=== PATIENT | female | born 1990 | race Two or more races ===

== ENCOUNTER 2016-12-20 10:36 | Observation (INO) | payer MEDICAID ==
[~2016-12-20] VITALS: Ht 144.8 cm; Wt 63.5 kg
[~2016-12-20 10:36] MED LIST: IBUP800T24 PO; INSUPOW SC; PRENATAL PLUS PO
[2016-12-20] MEDS ORDERED: SODIUM CHLORIDE 0.9% 3,000 ML IV ONE (11:00)
[2016-12-20 11:25] LABS: Urine Bilirubin Negative (Negative); Urine Color Yellow (Yellow); Urine Nitrite Negative (Negative); Urine RBC 607 /hpf (0 - 4); Urine Squamous Epithelial Cell FEW /hpf (<5); Urine Urobilinogen Normal (Negative)
[2016-12-20 11:34] LABS: Urine Blood 2+ /uL (Negative); Urine Glucose 4+ mg/dL (Normal); Urine Ketone 1+ (Negative)
[2016-12-20 11:34] LABS: Basophils # (auto) 0.1 uL; Basophils % (auto) 0.7 % (0.0-2.0); Eosinophils # (auto) 0.1 uL; Eosinophils % (auto) 0.8 % (0.0-7.0); Hematocrit 42.5 % (36.0-46.0); Hemoglobin 14.2 g/dL (12.2-16.2); Lymphocytes # (auto) 1.7 uL; Lymphocytes % (auto) 11.2 % (10.0-50.0); Mean Corpuscular Hemoglobin 28.6 pg (28.0-32.0); Mean Corpuscular Hgb Conc. 33.5 g/dL (32.0-36.0); Mean Corpuscular Volume 85.4 fL (80.0-100.0); Mean Platelet Volume 7.9 fL (7.4-10.4); Monocytes # (auto) 0.9 uL; Monocytes % (auto) 5.8 % (0.0-12.0); Neutrophils % (auto) 81.5 % (37.0-80.0); Platelet Count (auto) 458 10^3/uL (140-450); White Blood Cell 14.7 10^3/uL (4.4-10.8)
[2016-12-20] MEDS ORDERED: ACETAMINOPHEN 650 mg PER 20 mL UD PO ONE (11:45)
[2016-12-20] MEDS ORDERED: SODIUM CHLORIDE 0.9% 1,000 ML IV ONE (11:55)
[2016-12-20 11:56] LABS: BUN/Creatinine Ratio 5.7; Bilirubin, Total 0.1 mg/dL (0.2-1.0); Calcium 8.5 mg/dL (8.5-10.1); Potassium 3.6 mmol/L (3.5-5.1); Total Protein 7.4 g/dL (6.4-8.2)
[2016-12-20] MEDS ORDERED: cefTRIAXone 1GM/50ML D5W 50 ML IV ONE (12:00)
[2016-12-20] MEDS ORDERED: InsuLIN REG 1unit/0.01ml Soln (100units/ml) IV ONE (13:45)
[2016-12-20 14:46] VITALS: BP 107/73
== END 2016-12-20 15:00 | disposition home or self-care (01) | DRG 420 ==
LOC: ER 10:44 → OVERFLOW 11:57 → ER 14:56
PROVIDERS: ADMIT Emergency Medicine; ATTEND Emergency Medicine
DX: E11.65 Type 2 diabetes mellitus with hyperglycemia (principal); N39.0 Urinary tract infection, site not specified; J31.0 Chronic rhinitis; L02.811 Cutaneous abscess of head [any part, except face]
CPT/HCPCS: 36415; 71020; 80053; 81001; 81025; 82962; 83735; 85025; 96361; 96365; G0378; G0434; J0696

== ENCOUNTER 2018-04-30 00:28 | Emergency (ER) | payer SELFPAY ==
[~2018-04-30] VITALS: Ht 144.8 cm; Wt 63.5 kg
[2018-04-30] MEDS ORDERED: SODIUM CHLORIDE 0.9% 1,000 ML IV ONE ×2 (06:56)
[2018-04-30] MEDS ORDERED: InsuLIN REG 1unit/0.01ml Soln (100units/ml) IV ONE (07:00)
[2018-04-30 07:13] VITALS: BP 124/50
[2018-04-30 07:14] LABS: Basophils # (auto) 0.1 uL; Basophils % (auto) 0.7 % (0.0-2.0); Eosinophils # (auto) 0.1 uL; Eosinophils % (auto) 1.5 % (0.0-7.0); Hematocrit 40.1 % (36.0-46.0); Hemoglobin 13.8 g/dL (12.2-16.2); Lymphocytes # (auto) 2.4 uL; Lymphocytes % (auto) 26.7 % (10.0-50.0); Mean Corpuscular Hemoglobin 28.9 pg (28.0-32.0); Mean Corpuscular Hgb Conc. 34.4 g/dL (32.0-36.0); Mean Corpuscular Volume 84.1 fL (80.0-100.0); Monocytes # (auto) 0.6 uL; Neutrophils # (auto) 5.8 uL; Neutrophils % (auto) 64.1 % (37.0-80.0); Platelet Count (auto) 382 10^3/uL (140-450); Red Blood Cells 4.77 10^6/uL (4.0-5.20); Red Cell Distribution Width 12.8 % (11.8-14.3)
[2018-04-30] MEDS ORDERED: KETOROLAC TROMETH 60MG/2ML VIAL IM ONE (07:15)
[2018-04-30 07:30] LABS: BUN/Creatinine Ratio 19.6; Potassium 3.9 mmol/L (3.5-5.1)
== END 2018-04-30 09:09 | disposition home or self-care (01) ==
LOC: ER 00:33
DX: K02.9 Dental caries, unspecified (principal); E11.65 Type 2 diabetes mellitus with hyperglycemia; F12.10 Cannabis abuse, uncomplicated; F15.10 Other stimulant abuse, uncomplicated; Z88.0 Allergy status to penicillin; Z88.6 Allergy status to analgesic agent
CPT/HCPCS: 36415; 80048; 82962; 85025; 96372; 96374; 99284; J1815; J1885

== ENCOUNTER 2019-02-14 06:45 | Inpatient (IN) | payer MEDICAID | END 2019-02-18 15:30 | disposition home or self-care (01) | LOC: ER 06:45 → OVERFLOW 14:50 → EAST 16:09 | DX: A41.9 Sepsis, unspecified organism (principal); N17.0 Acute kidney failure with tubular necrosis; E44.0 Moderate protein-calorie malnutrition; L89.159 Pressure ulcer of sacral region, unspecified stage; E11.65 Type 2 diabetes mellitus with hyperglycemia; E88.09 Other disorders of plasma-protein metabolism, not elsewhere classified; L03.319 Cellulitis of trunk, unspecified; E86.0 Dehydration; F19.10 Other psychoactive substance abuse, uncomplicated; Z72.89 Other problems related to lifestyle; N17.9 Acute kidney failure, unspecified; F12.10 Cannabis abuse, uncomplicated; G62.9 Polyneuropathy, unspecified; I25.10 Atherosclerotic heart disease of native coronary artery without angina pectoris; M19.90 Unspecified osteoarthritis, unspecified site; L05.91 Pilonidal cyst without abscess; Z79.4 Long term (current) use of insulin; Z91.19 Patient's noncompliance with other medical treatment and regimen; Z59.0 Homelessness ==

== ENCOUNTER 2021-03-15 21:47 | Inpatient (IN) | payer MEDICAID ==
[~2021-03-15] VITALS: Ht 154.9 cm; Wt 68.7 kg
[~2021-03-15 21:47] MED LIST changes: -IBUP800T24 PO
[2021-03-15] MEDS ORDERED: KETOROLAC TROMETH 30 MG/ML 1ML VIAL IV ONE (22:30)
[2021-03-15] MEDS ORDERED: fentaNYL CITRATE 100 MCG/2 ML VL IV ONE (22:30)
[2021-03-15 22:59] LABS: Eosinophils # (auto) 0 10 ^3/uL (0-0.8); Eosinophils % (auto) 0.1 % (0.0-7.0); Lymphocytes # (auto) 1.8 10 ^3/uL (0.4-5.4); Monocytes # (auto) 1.7 10 ^3/uL (0-1.3); Neutrophils # (auto) 19.1 10 ^3/uL (1.6-8.6)
[2021-03-15 23:04] LABS: Albumin 2.1 g/dL (3.4-5.0); BUN/Creatinine Ratio 9.7; Calcium 8.1 mg/dL (8.5-10.1); Potassium 3.6 mmol/L (3.5-5.1)
[2021-03-15 23:07] LABS: Bilirubin, Total 0.2 mg/dL (0.2-1.0); Total Protein 7.9 g/dL (6.4-8.2)
[2021-03-15 23:16] LABS: Basophils # (auto) 0.1 10 ^3/uL (0-0.2); Basophils % (auto) 0.6 % (0.0-2.0); Mean Corpuscular Hemoglobin 30.5 pg (28.0-32.0); Mean Corpuscular Hgb Conc. 36.3 g/dL (32.0-36.0); Monocytes % (auto) 7.4 % (0.0-12.0); Neutrophils % (auto) 83.9 % (37.0-80.0); Red Blood Cells 3.93 10^6/uL (4.0-5.20); Red Cell Distribution Width 13.3 % (11.8-14.3); White Blood Cell 22.8 10^3/uL (4.4-10.8)
[2021-03-15 23:34] LABS: Urine Bacteria NONE SEEN /hpf (None Seen); Urine Blood 1+ /uL (Negative); Urine WBC 1 /hpf (0 - 5)
[2021-03-16] MEDS ORDERED: VANCOMYCIN 1GM/250ML 250 ML IV ONE
[2021-03-16] MEDS ORDERED: PIPERACILLIN-TAZOB 3.375GM 100 ML IV ONE ×2
[2021-03-16] MEDS ORDERED: IOHEXOL 300 MG/ML 100ML BOTTLE IJ ONE (00:29)
[2021-03-16] MEDS ORDERED: InsuLIN REG 1unit/0.01ml Soln (100units/ml) IV ONE (00:30)
[2021-03-16 01:37] LABS: Alcohol, Urine < 3.0 mg/dL (0-10); Amphetamine Screen, Urine POSITIVE (NEGATIVE); Barbiturate Scree,Urine NEGATIVE (NEGATIVE); Benzodiazephine Screen, Urine NEGATIVE (NEGATIVE); Cannabinoid Screen, Urine POSITIVE (NEGATIVE); Cocaine Screen, Urine NEGATIVE (NEGATIVE); Phencyclidine Screen, Urine NEGATIVE (NEGATIVE)
[2021-03-16 01:44] LABS: Opiate Scree,Urine NEGATIVE (NEGATIVE)
[2021-03-16] MEDS ORDERED: fentaNYL CITRATE 100 MCG/2 ML VL IV ONE (02:45)
[2021-03-16] MEDS ORDERED: diphenhdrAMINE HCL 50 MG/1 ML VL IV ONE (02:45)
[2021-03-16] MEDS ORDERED: ALBUMIN 25% 50 ML IV ONE (06:30)
[2021-03-16] MEDS ORDERED: DEXTROSE (50%) 50ML SYRG IV PRN (06:30)
[2021-03-16] MEDS ORDERED: TEMAZEPAM 15 MG CAP PO PRN (06:30)
[2021-03-16] MEDS ORDERED: NITROGLYCERIN 0.4 MG SL TAB SL PRN (06:30)
[2021-03-16] MEDS ORDERED: VANCOMYCIN PER PHARMACY 0 MG IV SCH (06:30)
[2021-03-16] MEDS ORDERED: MORPHINE SULFATE INJECTION 2 MG/ML SYRG IV PRN (06:30)
[2021-03-16] MEDS ORDERED: DOCUSATE SOD 100 MG CAP PO PRN (06:30)
[2021-03-16] MEDS ORDERED: ONDANSETRON HCL 4 MG/2 ML VIAL IV PRN ×2 (06:30→09:45)
[2021-03-16 07:29] LABS: Basophils # (auto) 0.1 10 ^3/uL (0-0.2); Eosinophils # (auto) 0 10 ^3/uL (0-0.8); Eosinophils % (auto) 0.1 % (0.0-7.0); Hematocrit 32.7 % (36.0-46.0); Hemoglobin 11.3 g/dL (12.2-16.2); Mean Corpuscular Hemoglobin 28.5 pg (28.0-32.0); Monocytes # (auto) 2.7 10 ^3/uL (0-1.3)
[2021-03-16 07:30] LABS: Basophils % (auto) 0.4 % (0.0-2.0); Lymphocytes # (auto) 2.5 10 ^3/uL (0.4-5.4); Lymphocytes % (auto) 11.3 % (10.0-50.0); Mean Corpuscular Hgb Conc. 34.6 g/dL (32.0-36.0); Mean Corpuscular Volume 82.6 fL (80.0-100.0); Monocytes % (auto) 12.3 % (0.0-12.0); Neutrophils # (auto) 16.6 10 ^3/uL (1.6-8.6); Neutrophils % (auto) 75.9 % (37.0-80.0); Red Blood Cells 3.96 10^6/uL (4.0-5.20); Red Cell Distribution Width 13.9 % (11.8-14.3); White Blood Cell 21.9 10^3/uL (4.4-10.8)
[2021-03-16] MEDS: SODIUM CHLORIDE 0.9% 1,000 ML IV SCH ×2 (07:50→23:34)
[2021-03-16] MEDS: INSULIN LANTUS (GLARGINE) 1 /0.01ml (100units/ml) SC SCH ×2 (07:50→23:27)
[2021-03-16 07:56] LABS: Alanine Aminotransferase 15 U/L (13-56); Albumin 1.8 g/dL (3.4-5.0); Anion Gap 9 (5-15); Aspartate Aminotransferase 31 U/L (15-37); BUN/Creatinine Ratio 14.3; Blood Urea Nitrogen 5 mg/dL (7-18); Calcium 7.9 mg/dL (8.5-10.1); Carbon Dioxide 22 mmol/L (21-32); Chloride 106 mmol/L (98-107); GFR African American 278 mL/min; GFR Non-African American 229 mL/min; Glucose 78 mg/dL (74-106); Potassium 3.2 mmol/L (3.5-5.1); Sodium 137 mmol/L (136-145)
[2021-03-16 07:59] LABS: Alkaline Phosphatase 137 U/L (45-117); Bilirubin, Total 0.2 mg/dL (0.2-1.0); Total Protein 7.2 g/dL (6.4-8.2)
[2021-03-16] MEDS ORDERED: levoFLOXacin 500MG 100 ML IV ONE (09:45)
[2021-03-16] MEDS: MULTIPLE VITAMIN TAB PO SCH (10:38)
[2021-03-16] MEDS: ZINC SULFATE 220mg CAP or TAB PO SCH (10:38)
[2021-03-16] MEDS: ASCORBIC ACID 500 MG TAB PO SCH ×2 (10:38→21:24)
[2021-03-16] MEDS: ASPirin 81 mg TAB PO SCH (10:38)
[2021-03-16] MEDS: FAMOTIDINE 20 MG TAB PO SCH ×2 (10:39→21:24)
[2021-03-16] MEDS: HEPARIN SODIUM (PORCINE) 5000 UNITS/ML 1ML VIAL SC SCH ×2 (10:40→21:23)
[2021-03-16] MEDS: VANCOMYCIN 1GM/250ML 250 ML IV SCH ×2 (10:42→21:27)
[2021-03-16 11:12] VITALS: BP 130/87
[2021-03-16] MEDS: InsuLIN REG 1unit/0.01ml Soln (100units/ml) SC SCH ×3 (12:09→23:28)
[2021-03-16] MEDS: ACCU-CHEK COMFORT CURVE STRIP VI SCH ×3 (12:09→23:34)
[2021-03-16] MEDS: MORPHINE SULFATE INJECTION 2 MG/ML SYRG IV PRN ×2 (12:11→21:31)
[2021-03-16 13:00] VITALS: BP 116/73
[2021-03-16] MEDS ORDERED: LIDOCAINE 2%HCL (LOCAL ANESTH.) INJ 20ML MDV ONE (16:46)
[2021-03-16] MEDS ORDERED: HEPARIN IN NS 1000Units/500mL 1,500 ML ONE (16:46)
[2021-03-16] MEDS ORDERED: IOHEXOL 350 MG/ML 100ML IJ ONE (16:46)
[2021-03-16] MEDS ORDERED: ANGIOMAX 250 MG VIAL IV ONE (16:54)
[2021-03-16] MEDS ORDERED: SODIUM CHL 0.9% 50 ML ONE (16:55)
[2021-03-16] MEDS ORDERED: fentaNYL CITRATE 100 MCG/2 ML VL ONE (16:55)
[2021-03-16] MEDS ORDERED: MIDAZOLAM HCL 2MG/2ML 2ml VIAL (1mg/ml) ONE (16:55)
[2021-03-16] MEDS ORDERED: diphenhdrAMINE HCL 50 MG/1 ML VL ONE (17:24)
[2021-03-16 17:49] LABS: INR 1.09 (0.9-1.15)
[2021-03-16] MEDS ORDERED: IODIXANOL 320MG/ML 100ML BTL IV ONE (19:37)
[2021-03-16] MEDS: ACETAMINOPHEN 325 MG TAB PO PRN (20:52)
[2021-03-16] MEDS: ATORVASTATIN 20 MG TAB PO SCH (21:25)
[2021-03-16 22:00] VITALS: BP 123/71
[2021-03-17] MEDS: VANCOMYCIN 1GM/250ML 250 ML IV SCH (03:35)
[2021-03-17] MEDS: MORPHINE SULFATE INJECTION 2 MG/ML SYRG IV PRN ×4 (04:09→20:50)
[2021-03-17 04:58] VITALS: BP 115/59
[2021-03-17 05:21] LABS: Basophils # (auto) 0 10 ^3/uL (0-0.2); Basophils % (auto) 0.2 % (0.0-2.0); Eosinophils # (auto) 0 10 ^3/uL (0-0.8); Hemoglobin 10.9 g/dL (12.2-16.2); Monocytes # (auto) 1.5 10 ^3/uL (0-1.3); Neutrophils # (auto) 14.5 10 ^3/uL (1.6-8.6)
[2021-03-17 05:23] LABS: Lymphocytes % (auto) 11.1 % (10.0-50.0); Mean Corpuscular Hemoglobin 28.9 pg (28.0-32.0); Mean Corpuscular Hgb Conc. 35.1 g/dL (32.0-36.0); Mean Corpuscular Volume 82.3 fL (80.0-100.0); Monocytes % (auto) 8.5 % (0.0-12.0); Neutrophils % (auto) 80.2 % (37.0-80.0); Red Blood Cells 3.77 10^6/uL (4.0-5.20); Red Cell Distribution Width 13.6 % (11.8-14.3); White Blood Cell 18.1 10^3/uL (4.4-10.8)
[2021-03-17 05:37] LABS: BUN/Creatinine Ratio 11.9; Bilirubin, Total 0.3 mg/dL (0.2-1.0); Total Protein 7.2 g/dL (6.4-8.2)
[2021-03-17] MEDS: InsuLIN REG 1unit/0.01ml Soln (100units/ml) SC SCH ×4 (06:00→23:28)
[2021-03-17] MEDS: ACCU-CHEK COMFORT CURVE STRIP VI SCH ×4 (06:19→23:29)
[2021-03-17] MEDS: INSULIN LANTUS (GLARGINE) 1 /0.01ml (100units/ml) SC SCH ×2 (06:48→22:48)
[2021-03-17 09:00] VITALS: BP 136/76
[2021-03-17] MEDS: ASPirin 81 mg TAB PO SCH (10:16)
[2021-03-17] MEDS: ZINC SULFATE 220mg CAP or TAB PO SCH (10:16)
[2021-03-17] MEDS: MULTIPLE VITAMIN TAB PO SCH (10:16)
[2021-03-17] MEDS: levoFLOXacin 500MG 100 ML IV SCH (10:16)
[2021-03-17] MEDS: FAMOTIDINE 20 MG TAB PO SCH ×2 (10:16→21:03)
[2021-03-17] MEDS: ASCORBIC ACID 500 MG TAB PO SCH ×2 (10:16→21:03)
[2021-03-17] MEDS: HEPARIN SODIUM (PORCINE) 5000 UNITS/ML 1ML VIAL SC SCH ×2 (10:21→21:04)
[2021-03-17 13:00] VITALS: BP 114/86
[2021-03-17] MEDS ORDERED: POTASSIUM CHL 20 Meq TABLET PO ONE (13:30)
[2021-03-17] MEDS: POTASSIUM CHL 20MEQ/100ML 100 ML IV SCH ×2 (14:59→17:28)
[2021-03-17] MEDS: SODIUM CHLORIDE 0.9% 1,000 ML IV SCH (16:12)
[2021-03-17 16:50] VITALS: BP 107/70
[2021-03-17] MEDS: ATORVASTATIN 20 MG TAB PO SCH (21:03)
[2021-03-17 22:00] VITALS: BP 138/79
[2021-03-17] MEDS: ACETAMINOPHEN 325 MG TAB PO PRN (22:46)
[2021-03-18] MEDS: MORPHINE SULFATE INJECTION 2 MG/ML SYRG IV PRN ×6 (01:35→21:27)
[2021-03-18 03:10] LABS: Basophils # (auto) 0.1 10 ^3/uL (0-0.2); Basophils % (auto) 0.5 % (0.0-2.0); Eosinophils # (auto) 0 10 ^3/uL (0-0.8); Hematocrit 31.8 % (36.0-46.0); Hemoglobin 10.7 g/dL (12.2-16.2); Lymphocytes # (auto) 3.8 10 ^3/uL (0.4-5.4); Lymphocytes % (auto) 19.6 % (10.0-50.0); Mean Corpuscular Hemoglobin 28.2 pg (28.0-32.0); Mean Corpuscular Hgb Conc. 33.6 g/dL (32.0-36.0); Monocytes # (auto) 1.9 10 ^3/uL (0-1.3); Monocytes % (auto) 9.9 % (0.0-12.0); Neutrophils # (auto) 13.5 10 ^3/uL (1.6-8.6); Red Blood Cells 3.79 10^6/uL (4.0-5.20); Red Cell Distribution Width 13.6 % (11.8-14.3); White Blood Cell 19.2 10^3/uL (4.4-10.8)
[2021-03-18 03:34] LABS: BUN/Creatinine Ratio 12.5; Calcium 8.3 mg/dL (8.5-10.1)
[2021-03-18 03:38] LABS: Potassium 2.8 mmol/L (3.5-5.1)
[2021-03-18] MEDS ORDERED: VANCOMYCIN 1GM/250ML 250 ML IV SCH (04:00)
[2021-03-18] MEDS ORDERED: POTASSIUM CHL 20 Meq TABLET PO ONE (04:45)
[2021-03-18 04:58] VITALS: BP 106/66
[2021-03-18] MEDS: InsuLIN REG 1unit/0.01ml Soln (100units/ml) SC SCH ×3 (06:45→18:29)
[2021-03-18] MEDS: INSULIN LANTUS (GLARGINE) 1 /0.01ml (100units/ml) SC SCH ×2 (06:52→21:55)
[2021-03-18] MEDS: ACCU-CHEK COMFORT CURVE STRIP VI SCH ×3 (06:53→18:30)
[2021-03-18 09:00] VITALS: BP 111/73
[2021-03-18] MEDS: ASPirin 81 mg TAB PO SCH (09:32)
[2021-03-18] MEDS: SODIUM CHLORIDE 0.9% 1,000 ML IV SCH (09:32)
[2021-03-18] MEDS: levoFLOXacin 500MG 100 ML IV SCH (09:32)
[2021-03-18] MEDS: MULTIPLE VITAMIN TAB PO SCH (09:33)
[2021-03-18] MEDS: ASCORBIC ACID 500 MG TAB PO SCH ×2 (09:33→21:08)
[2021-03-18] MEDS: FAMOTIDINE 20 MG TAB PO SCH ×2 (09:33→21:09)
[2021-03-18] MEDS: ZINC SULFATE 220mg CAP or TAB PO SCH (09:33)
[2021-03-18] MEDS: HEPARIN SODIUM (PORCINE) 5000 UNITS/ML 1ML VIAL SC SCH ×2 (09:34→21:55)
[2021-03-18] MEDS ORDERED: POTASSIUM EFFERVESENT TAB 25 MEQ PO ONE (12:15)
[2021-03-18] MEDS: POTASSIUM CHL 20MEQ/100ML 100 ML IV SCH ×2 (12:50→14:15)
[2021-03-18 13:00] VITALS: BP 110/69
[2021-03-18] MEDS ORDERED: MORPHINE SULFATE INJECTION 2 MG/ML SYRG IV ONE (13:45)
[2021-03-18 17:00] VITALS: BP 114/72
[2021-03-18 18:21] LABS: BUN/Creatinine Ratio 10.5; Calcium 8.3 mg/dL (8.5-10.1); Potassium 4.5 mmol/L (3.5-5.1)
[2021-03-18] MEDS: ATORVASTATIN 20 MG TAB PO SCH (21:08)
[2021-03-18] MEDS: VANCOMYCIN 1GM/250ML 250 ML IV SCH (21:55)
[2021-03-18 22:00] VITALS: BP 121/82
[2021-03-19] MEDS: SODIUM CHLORIDE 0.9% 1,000 ML IV SCH ×2 (01:10→09:57)
[2021-03-19 05:00] VITALS: BP 129/76
[2021-03-19] MEDS: MORPHINE SULFATE INJECTION 2 MG/ML SYRG IV PRN ×4 (05:45→22:42)
[2021-03-19] MEDS: InsuLIN REG 1unit/0.01ml Soln (100units/ml) SC SCH ×3 (06:20→18:54)
[2021-03-19] MEDS: INSULIN LANTUS (GLARGINE) 1 /0.01ml (100units/ml) SC SCH ×2 (06:21→22:00)
[2021-03-19] MEDS: ACCU-CHEK COMFORT CURVE STRIP VI SCH ×4 (06:21→18:00)
[2021-03-19 07:02] LABS: Basophils # (auto) 0 10 ^3/uL (0-0.2); Basophils % (auto) 0.1 % (0.0-2.0); Eosinophils # (auto) 0 10 ^3/uL (0-0.8); Eosinophils % (auto) 0.1 % (0.0-7.0); Hematocrit 29.9 % (36.0-46.0); Hemoglobin 10.3 g/dL (12.2-16.2); Lymphocytes # (auto) 1.4 10 ^3/uL (0.4-5.4); Lymphocytes % (auto) 6.9 % (10.0-50.0); Mean Corpuscular Hemoglobin 28.8 pg (28.0-32.0); Mean Corpuscular Hgb Conc. 34.3 g/dL (32.0-36.0); Mean Corpuscular Volume 83.7 fL (80.0-100.0); Monocytes # (auto) 1.2 10 ^3/uL (0-1.3); Neutrophils % (auto) 86.9 % (37.0-80.0); Red Blood Cells 3.57 10^6/uL (4.0-5.20); Red Cell Distribution Width 13.7 % (11.8-14.3); White Blood Cell 20.7 10^3/uL (4.4-10.8)
[2021-03-19 07:18] LABS: Calcium 8.2 mg/dL (8.5-10.1); Potassium 4.1 mmol/L (3.5-5.1)
[2021-03-19 07:21] LABS: BUN/Creatinine Ratio 18.2
[2021-03-19 09:00] VITALS: BP 106/67
[2021-03-19] MEDS: HEPARIN SODIUM (PORCINE) 5000 UNITS/ML 1ML VIAL SC SCH ×2 (09:54→10:00)
[2021-03-19] MEDS: levoFLOXacin 500MG 100 ML IV SCH (09:57)
[2021-03-19] MEDS: ASPirin 81 mg TAB PO SCH (09:58)
[2021-03-19] MEDS: ASCORBIC ACID 500 MG TAB PO SCH ×2 (09:58→22:00)
[2021-03-19] MEDS: ZINC SULFATE 220mg CAP or TAB PO SCH (09:58)
[2021-03-19] MEDS: MULTIPLE VITAMIN TAB PO SCH (09:58)
[2021-03-19] MEDS: FAMOTIDINE 20 MG TAB PO SCH ×2 (09:58→22:00)
[2021-03-19 13:00] VITALS: BP 104/72
[2021-03-19 17:00] VITALS: BP 104/64
[2021-03-19] MEDS: VANCOMYCIN 1GM/250ML 250 ML IV SCH (17:39)
[2021-03-19] MEDS: ACETAMINOPHEN 325 MG TAB PO PRN (20:40)
[2021-03-19 22:00] VITALS: BP 129/76
[2021-03-19] MEDS: ATORVASTATIN 20 MG TAB PO SCH (22:00)
[2021-03-20] MEDS: ACCU-CHEK COMFORT CURVE STRIP VI SCH ×4 (00:02→17:55)
[2021-03-20] MEDS: InsuLIN REG 1unit/0.01ml Soln (100units/ml) SC SCH ×4 (00:04→17:55)
[2021-03-20] MEDS: MORPHINE SULFATE INJECTION 2 MG/ML SYRG IV PRN ×5 (02:37→20:45)
[2021-03-20 05:00] VITALS: BP 109/73
[2021-03-20] MEDS: INSULIN LANTUS (GLARGINE) 1 /0.01ml (100units/ml) SC SCH ×2 (06:43→22:00)
[2021-03-20] MEDS ORDERED: CLINDAMYCIN 600MG IV 50 ML IV ONE ×2 (07:16→09:19)
[2021-03-20 08:10] LABS: Basophils # (auto) 0.1 10 ^3/uL (0-0.2); Basophils % (auto) 0.3 % (0.0-2.0); Eosinophils # (auto) 0 10 ^3/uL (0-0.8); Eosinophils % (auto) 0.1 % (0.0-7.0); Hemoglobin 10.9 g/dL (12.2-16.2); Lymphocytes # (auto) 1.5 10 ^3/uL (0.4-5.4); Monocytes # (auto) 0.9 10 ^3/uL (0-1.3); Monocytes % (auto) 5.1 % (0.0-12.0); White Blood Cell 18.5 10^3/uL (4.4-10.8)
[2021-03-20] MEDS ORDERED: PROPOFOL 10 MG/ML 20 ML IV ONE (08:11)
[2021-03-20] MEDS ORDERED: MIDAZOLAM HCL 2MG/2ML 2ml VIAL (1mg/ml) ONE (08:11)
[2021-03-20] MEDS ORDERED: ONDANSETRON HCL 4 MG/2 ML VIAL ONE (08:11)
[2021-03-20] MEDS ORDERED: SODIUM CHLORIDE LOCK 10 ML ONE (08:11)
[2021-03-20] MEDS ORDERED: fentaNYL CITRATE 100 MCG/2 ML VL ONE (08:11)
[2021-03-20 08:12] LABS: Hematocrit 31.7 % (36.0-46.0); Lymphocytes % (auto) 8.2 % (10.0-50.0); Mean Corpuscular Hemoglobin 28.5 pg (28.0-32.0); Mean Corpuscular Hgb Conc. 34.4 g/dL (32.0-36.0); Neutrophils % (auto) 86.3 % (37.0-80.0); Red Blood Cells 3.83 10^6/uL (4.0-5.20); Red Cell Distribution Width 13.9 % (11.8-14.3)
[2021-03-20] MEDS ORDERED: KETAMINE HCL 10 ML ONE (08:14)
[2021-03-20] MEDS ORDERED: ceFAZolin 1GM VL ONE (08:28)
[2021-03-20] MEDS ORDERED: ACCU-CHEK COMFORT CURVE STRIP VI ONE (08:45)
[2021-03-20] MEDS ORDERED: METOCLOPRAMIDE HCL 5MG/ml INJ 2ml VIAL IV PRN (08:45)
[2021-03-20] MEDS ORDERED: HYDROmorphone HCL 2 MG/ML VL IV PRN (08:45)
[2021-03-20] MEDS ORDERED: MORPHINE SULFATE 4 MG/ML SYR/VIAL IV PRN (08:45)
[2021-03-20 09:01] LABS: Calcium 8.4 mg/dL (8.5-10.1)
[2021-03-20] MEDS ORDERED: ROPIVACAINE 0.5% (5MG/ML) 20ML AMPULE IJ ONE (09:01)
[2021-03-20] MEDS ORDERED: LIDOCAINE 2% (LOCAL ANESTH.) PF 5ml SDV ONE (09:03)
[2021-03-20 09:04] LABS: BUN/Creatinine Ratio 18.4
[2021-03-20 10:20] VITALS: BP 123/83
[2021-03-20] MEDS: SODIUM CHLORIDE 0.9% 1,000 ML IV SCH (10:50)
[2021-03-20 11:14] LABS: INR 1.07 (0.9-1.15)
[2021-03-20] MEDS: FAMOTIDINE 20 MG TAB PO SCH ×2 (11:35→22:00)
[2021-03-20] MEDS: ZINC SULFATE 220mg CAP or TAB PO SCH (11:35)
[2021-03-20] MEDS: ASCORBIC ACID 500 MG TAB PO SCH ×2 (11:35→22:00)
[2021-03-20] MEDS: levoFLOXacin 500MG 100 ML IV SCH (11:35)
[2021-03-20] MEDS: MULTIPLE VITAMIN TAB PO SCH (11:35)
[2021-03-20] MEDS: ASPirin 81 mg TAB PO SCH (11:35)
[2021-03-20] MEDS: VANCOMYCIN 1GM/250ML 250 ML IV SCH ×2 (12:32→21:59)
[2021-03-20 13:00] VITALS: BP 134/76
[2021-03-20] MEDS ORDERED: LIDOCAINE 1% (LOCAL ANESTH.) PF 5ml SDV ID ONE (16:45)
[2021-03-20 16:49] VITALS: BP 127/74
[2021-03-20 22:00] VITALS: BP 126/66
[2021-03-20] MEDS: ATORVASTATIN 20 MG TAB PO SCH (22:00)
[2021-03-20] MEDS: HEPARIN SODIUM (PORCINE) 5000 UNITS/ML 1ML VIAL SC SCH (22:00)
[2021-03-20] MEDS: SODIUM CHLOR 0.9% PF (SALINE LOCK) 10ML VIAL/SYR IV SCH (22:00)
[2021-03-20] MEDS: ACETAMINOPHEN 325 MG TAB PO PRN (22:41)
[2021-03-21] MEDS: MORPHINE SULFATE INJECTION 2 MG/ML SYRG IV PRN ×6 (00:43→21:26)
[2021-03-21] MEDS: SODIUM CHLORIDE 0.9% 1,000 ML IV SCH ×2 (03:10→19:22)
[2021-03-21 05:00] VITALS: BP 95/60
[2021-03-21] MEDS: InsuLIN REG 1unit/0.01ml Soln (100units/ml) SC SCH ×5 (06:00→23:29)
[2021-03-21] MEDS: ACCU-CHEK COMFORT CURVE STRIP VI SCH ×5 (06:05→23:28)
[2021-03-21] MEDS: INSULIN LANTUS (GLARGINE) 1 /0.01ml (100units/ml) SC SCH ×2 (06:36→21:39)
[2021-03-21] MEDS: VANCOMYCIN 1GM/250ML 250 ML IV SCH ×2 (08:19→17:37)
[2021-03-21 09:00] VITALS: BP 128/70
[2021-03-21] MEDS: HEPARIN SODIUM (PORCINE) 5000 UNITS/ML 1ML VIAL SC SCH ×2 (09:29→21:37)
[2021-03-21] MEDS: MULTIPLE VITAMIN TAB PO SCH (09:33)
[2021-03-21] MEDS: ASPirin 81 mg TAB PO SCH (09:33)
[2021-03-21] MEDS: ZINC SULFATE 220mg CAP or TAB PO SCH (09:33)
[2021-03-21] MEDS: ASCORBIC ACID 500 MG TAB PO SCH ×2 (09:33→21:37)
[2021-03-21] MEDS: SODIUM CHLOR 0.9% PF (SALINE LOCK) 10ML VIAL/SYR IV SCH ×2 (09:33→21:36)
[2021-03-21] MEDS: FAMOTIDINE 20 MG TAB PO SCH ×2 (09:33→21:37)
[2021-03-21] MEDS: levoFLOXacin 500MG 100 ML IV SCH ×2 (09:33→10:33)
[2021-03-21 13:00] VITALS: BP 115/67
[2021-03-21 16:37] VITALS: BP 119/66
[2021-03-21 17:43] LABS: Lymphocytes # (auto) 2.4 10 ^3/uL (0.4-5.4)
[2021-03-21 17:45] LABS: Basophils # (auto) 0.1 10 ^3/uL (0-0.2); Basophils % (auto) 0.3 % (0.0-2.0); Eosinophils # (auto) 0.1 10 ^3/uL (0-0.8); Eosinophils % (auto) 0.3 % (0.0-7.0); Hematocrit 30.8 % (36.0-46.0); Hemoglobin 10.8 g/dL (12.2-16.2); Lymphocytes % (auto) 13.5 % (10.0-50.0); Mean Corpuscular Hemoglobin 29.2 pg (28.0-32.0); Mean Corpuscular Hgb Conc. 35.2 g/dL (32.0-36.0); Monocytes # (auto) 1.3 10 ^3/uL (0-1.3); Monocytes % (auto) 7.3 % (0.0-12.0); Neutrophils # (auto) 13.9 10 ^3/uL (1.6-8.6); Neutrophils % (auto) 78.6 % (37.0-80.0); Red Blood Cells 3.71 10^6/uL (4.0-5.20); Red Cell Distribution Width 14.1 % (11.8-14.3); White Blood Cell 17.7 10^3/uL (4.4-10.8)
[2021-03-21] MEDS: ATORVASTATIN 20 MG TAB PO SCH (21:36)
[2021-03-21 22:14] VITALS: BP 124/76
[2021-03-22] MEDS: MORPHINE SULFATE INJECTION 2 MG/ML SYRG IV PRN ×6 (01:09→21:48)
[2021-03-22] MEDS: VANCOMYCIN 1GM/250ML 250 ML IV SCH ×3 (03:51→23:38)
[2021-03-22 05:01] VITALS: BP 105/79
[2021-03-22] MEDS: ACCU-CHEK COMFORT CURVE STRIP VI SCH ×4 (05:34→23:38)
[2021-03-22] MEDS: InsuLIN REG 1unit/0.01ml Soln (100units/ml) SC SCH ×4 (06:02→23:40)
[2021-03-22] MEDS: INSULIN LANTUS (GLARGINE) 1 /0.01ml (100units/ml) SC SCH ×2 (06:03→22:11)
[2021-03-22 08:00] VITALS: BP 99/62
[2021-03-22 09:00] VITALS: BP 114/69
[2021-03-22] MEDS: ASPirin 81 mg TAB PO SCH (09:34)
[2021-03-22] MEDS: MULTIPLE VITAMIN TAB PO SCH (09:34)
[2021-03-22] MEDS: ZINC SULFATE 220mg CAP or TAB PO SCH (09:35)
[2021-03-22] MEDS: ASCORBIC ACID 500 MG TAB PO SCH ×2 (09:35→22:10)
[2021-03-22] MEDS: SODIUM CHLOR 0.9% PF (SALINE LOCK) 10ML VIAL/SYR IV SCH ×2 (09:36→22:09)
[2021-03-22] MEDS: FAMOTIDINE 20 MG TAB PO SCH ×2 (09:36→22:00)
[2021-03-22] MEDS: HEPARIN SODIUM (PORCINE) 5000 UNITS/ML 1ML VIAL SC SCH ×2 (09:43→22:10)
[2021-03-22] MEDS: levoFLOXacin 500MG 100 ML IV SCH (11:43)
[2021-03-22] MEDS: ACETAMINOPHEN 325 MG TAB PO PRN ×2 (11:51→19:20)
[2021-03-22] MEDS: SODIUM CHLORIDE 0.9% 1,000 ML IV SCH ×2 (12:17→22:13)
[2021-03-22 12:39] VITALS: BP 97/58
[2021-03-22 16:39] VITALS: BP 99/62
[2021-03-22] MEDS: ATORVASTATIN 20 MG TAB PO SCH (22:09)
[2021-03-22 22:14] VITALS: BP 114/78
[2021-03-23] MEDS: MORPHINE SULFATE INJECTION 2 MG/ML SYRG IV PRN ×4 (01:33→14:51)
[2021-03-23 05:02] VITALS: BP 137/76
[2021-03-23] MEDS: InsuLIN REG 1unit/0.01ml Soln (100units/ml) SC SCH ×2 (06:00→12:52)
[2021-03-23] MEDS: ACCU-CHEK COMFORT CURVE STRIP VI SCH ×2 (06:20→12:00)
[2021-03-23] MEDS: INSULIN LANTUS (GLARGINE) 1 /0.01ml (100units/ml) SC SCH (06:20)
[2021-03-23 09:00] VITALS: BP 118/47
[2021-03-23] MEDS: VANCOMYCIN 1GM/250ML 250 ML IV SCH (09:51)
[2021-03-23] MEDS: FAMOTIDINE 20 MG TAB PO SCH (09:56)
[2021-03-23] MEDS: ZINC SULFATE 220mg CAP or TAB PO SCH (09:56)
[2021-03-23] MEDS: ASCORBIC ACID 500 MG TAB PO SCH (09:56)
[2021-03-23] MEDS: ASPirin 81 mg TAB PO SCH (09:56)
[2021-03-23] MEDS: MULTIPLE VITAMIN TAB PO SCH (09:57)
[2021-03-23] MEDS: SODIUM CHLOR 0.9% PF (SALINE LOCK) 10ML VIAL/SYR IV SCH (09:57)
[2021-03-23] MEDS: levoFLOXacin 500MG 100 ML IV SCH (10:00)
[2021-03-23] MEDS: HEPARIN SODIUM (PORCINE) 5000 UNITS/ML 1ML VIAL SC SCH (10:01)
[2021-03-23] MEDS: ACETAMINOPHEN 325 MG TAB PO PRN (12:53)
[2021-03-23 13:00] VITALS: BP 112/68
[2021-03-23 14:15] VITALS: BP 112/68
== END 2021-03-23 15:20 | DRG 181 ==
LOC: ER 21:47 → OVERFLOW 03-16 06:22 → CENTRAL 03-16 11:11
PROVIDERS: ADMIT Nurse Practitioner Family; ATTEND Internal Medicine
PROC: B41G1ZZ Fluoroscopy of Left Lower Extremity Arteries using Low Osmolar Contrast (ICD-10-PCS; principal; 2021-03-16)
PROC: 047K3ZZ Dilation of Right Femoral Artery, Percutaneous Approach (ICD-10-PCS; 2021-03-16)
PROC: B41F1ZZ Fluoroscopy of Right Lower Extremity Arteries using Low Osmolar Contrast (ICD-10-PCS; 2021-03-16)
PROC: 04CK3ZZ Extirpation of Matter from Right Femoral Artery, Percutaneous Approach (ICD-10-PCS; 2021-03-16)
PROC: 0Y6T0Z0 Detachment at Right 3rd Toe, Complete, Open Approach (ICD-10-PCS; 2021-03-20)
PROC: 0Y6X0Z0 Detachment at Right 5th Toe, Complete, Open Approach (ICD-10-PCS; 2021-03-20)
PROC: 0Y6V0Z0 Detachment at Right 4th Toe, Complete, Open Approach (ICD-10-PCS; 2021-03-20)
PROC: 05H933Z Insertion of Infusion Device into Right Brachial Vein, Percutaneous Approach (ICD-10-PCS; 2021-03-20)
PROC: B54MZZA Ultrasonography of Right Upper Extremity Veins, Guidance (ICD-10-PCS; 2021-03-20)
DX: E11.52 Type 2 diabetes mellitus with diabetic peripheral angiopathy with gangrene (principal); E11.621 Type 2 diabetes mellitus with foot ulcer; L03.115 Cellulitis of right lower limb; E87.1 Hypo-osmolality and hyponatremia; E11.65 Type 2 diabetes mellitus with hyperglycemia; E88.09 Other disorders of plasma-protein metabolism, not elsewhere classified; E86.0 Dehydration; M86.8X7 Other osteomyelitis, ankle and foot; M87.874 Other osteonecrosis, right foot; L97.519 Non-pressure chronic ulcer of other part of right foot with unspecified severity; E87.6 Hypokalemia; F19.10 Other psychoactive substance abuse, uncomplicated; Z20.822 Contact with and (suspected) exposure to COVID-19; E11.69 Type 2 diabetes mellitus with other specified complication; F15.10 Other stimulant abuse, uncomplicated; F17.200 Nicotine dependence, unspecified, uncomplicated; Z79.01 Long term (current) use of anticoagulants; Z82.49 Family history of ischemic heart disease and other diseases of the circulatory system; Z83.3 Family history of diabetes mellitus; Z90.49 Acquired absence of other specified parts of digestive tract; Z88.0 Allergy status to penicillin; Z88.5 Allergy status to narcotic agent
CPT/HCPCS: 36415; 36569; 37225; 73701; 73718; 75716; 80048; 80053; 80202; 80307; 81001; 82565; 82962; 83036; 83605; 83735; 83880; 84702; 85025; 85049; 85610; 85730; 86850; 86900; 86901; 87040; 87070; 87075; 87076; 87077; 87186; 87205; 87426; 93005; 93926; 93971; 96365; 96366; 96367; 96368; 96375; 96376; 99152; 99153; 99291; G0378; J0690; J1815; J1885; J1956; J2001; J2250; J2405; J2543; J2704; J3480; J3490; Q9967

== ENCOUNTER 2021-05-02 15:16 | Inpatient (IN) | payer MEDICAID ==
[~2021-05-02] VITALS: Ht 144.8 cm; Wt 60.5 kg
[2021-05-02 16:18] LABS: Eosinophils # (auto) 0.1 10 ^3/uL (0-0.8); Eosinophils % (auto) 0.6 % (0.0-7.0); Lymphocytes # (auto) 1.9 10 ^3/uL (0.4-5.4); Lymphocytes % (auto) 19.3 % (10.0-50.0); Monocytes # (auto) 0.6 10 ^3/uL (0-1.3)
[2021-05-02 16:21] LABS: Basophils # (auto) 0 10 ^3/uL (0-0.2); Basophils % (auto) 0.5 % (0.0-2.0); Hematocrit 28.7 % (36.0-46.0); Hemoglobin 9.8 g/dL (12.2-16.2); Mean Corpuscular Hemoglobin 26.5 pg (28.0-32.0); Mean Corpuscular Hgb Conc. 34.2 g/dL (32.0-36.0); Mean Corpuscular Volume 77.5 fL (80.0-100.0); Monocytes % (auto) 5.9 % (0.0-12.0); Neutrophils # (auto) 7.2 10 ^3/uL (1.6-8.6); Neutrophils % (auto) 73.7 % (37.0-80.0); Red Cell Distribution Width 14.2 % (11.8-14.3); White Blood Cell 9.8 10^3/uL (4.4-10.8)
[2021-05-02 16:34] LABS: INR 1.18 (0.9-1.15); Partial Thromboplastin Time 28.2 sec (23.6-33.0)
[2021-05-02 16:36] LABS: Albumin 2.6 g/dL (3.4-5.0); Calcium 8.3 mg/dL (8.5-10.1); Potassium 3.6 mmol/L (3.5-5.1)
[2021-05-02 16:40] LABS: BUN/Creatinine Ratio 10.7; Bilirubin, Total 0.2 mg/dL (0.2-1.0); Total Protein 8.4 g/dL (6.4-8.2)
[2021-05-03] MEDS ORDERED: ONDANSETRON HCL 4 MG/2 ML VIAL IV ONE (01:30)
[2021-05-03] MEDS ORDERED: MORPHINE SULFATE INJECTION 2 MG/2 ML SYRG IV PRN (02:45)
[2021-05-03] MEDS: D5W/SOD CHLO 0.9% 1,000 ML IV SCH ×2 (02:45→12:10)
[2021-05-03] MEDS ORDERED: NITROGLYCERIN 0.4 MG SL TAB SL PRN (02:45)
[2021-05-03] MEDS ORDERED: DEXTROSE (50%) 50ML SYRG IV PRN (02:45)
[2021-05-03] MEDS ORDERED: ACETAMINOPHEN 500 MG TAB PO PRN (02:45)
[2021-05-03] MEDS ORDERED: ONDANSETRON HCL 4 MG/2 ML VIAL IV PRN (02:45)
[2021-05-03] MEDS: MORPHINE SULFATE INJECTION 2 MG/2 ML SYRG IV PRN ×3 (03:42→20:38)
[2021-05-03 05:30] LABS: Basophils # (auto) 0 10 ^3/uL (0-0.2); Basophils % (auto) 0.4 % (0.0-2.0); Eosinophils # (auto) 0.1 10 ^3/uL (0-0.8); Eosinophils % (auto) 0.7 % (0.0-7.0); Hemoglobin 9.5 g/dL (12.2-16.2); Lymphocytes # (auto) 2.4 10 ^3/uL (0.4-5.4); Monocytes # (auto) 0.8 10 ^3/uL (0-1.3)
[2021-05-03 05:33] LABS: Hematocrit 28.2 % (36.0-46.0); Lymphocytes % (auto) 24.5 % (10.0-50.0); Mean Corpuscular Hemoglobin 26.3 pg (28.0-32.0); Mean Corpuscular Hgb Conc. 33.7 g/dL (32.0-36.0); Mean Corpuscular Volume 78.1 fL (80.0-100.0); Monocytes % (auto) 8.1 % (0.0-12.0); Neutrophils # (auto) 6.4 10 ^3/uL (1.6-8.6); Neutrophils % (auto) 66.3 % (37.0-80.0); Red Blood Cells 3.61 10^6/uL (4.0-5.20); Red Cell Distribution Width 14.2 % (11.8-14.3); White Blood Cell 9.7 10^3/uL (4.4-10.8)
[2021-05-03 05:47] LABS: BUN/Creatinine Ratio 9.9; Calcium 8.4 mg/dL (8.5-10.1); Potassium 3.6 mmol/L (3.5-5.1)
[2021-05-03] MEDS ORDERED: PIPERACILLIN-TAZOB 3.375GM 100 ML IV SCH (06:00)
[2021-05-03] MEDS: InsuLIN REG 1unit/0.01ml Soln (100units/ml) SC SCH ×3 (06:00→18:00)
[2021-05-03] MEDS: ACCU-CHEK COMFORT CURVE STRIP VI SCH ×3 (06:23→18:00)
[2021-05-03] MEDS ORDERED: levoFLOXacin 500MG 100 ML IV SCH (17:00)
[2021-05-03 22:00] VITALS: BP 94/62
[2021-05-03] MEDS ORDERED: SODIUM CHLORIDE 0.9% 1,000 ML IV ONE ×2 (23:00)
[2021-05-04] MEDS: ACCU-CHEK COMFORT CURVE STRIP VI SCH ×3 (00:25→12:25)
[2021-05-04] MEDS: InsuLIN REG 1unit/0.01ml Soln (100units/ml) SC SCH ×3 (00:31→12:00)
[2021-05-04] MEDS: MORPHINE SULFATE INJECTION 2 MG/2 ML SYRG IV PRN ×3 (00:38→12:25)
[2021-05-04 05:07] VITALS: BP 113/70
[2021-05-04 06:52] LABS: Basophils # (auto) 0 10 ^3/uL (0-0.2); Hemoglobin 8.4 g/dL (12.2-16.2); Monocytes # (auto) 0.6 10 ^3/uL (0-1.3); Monocytes % (auto) 8.5 % (0.0-12.0); Neutrophils # (auto) 4.9 10 ^3/uL (1.6-8.6)
[2021-05-04 06:54] LABS: Basophils % (auto) 0.4 % (0.0-2.0); Eosinophils # (auto) 0 10 ^3/uL (0-0.8); Eosinophils % (auto) 0.6 % (0.0-7.0); Hematocrit 24.3 % (36.0-46.0); Lymphocytes # (auto) 1.8 10 ^3/uL (0.4-5.4); Lymphocytes % (auto) 24.1 % (10.0-50.0); Mean Corpuscular Hgb Conc. 34.6 g/dL (32.0-36.0); Neutrophils % (auto) 66.4 % (37.0-80.0); Red Blood Cells 3.11 10^6/uL (4.0-5.20); White Blood Cell 7.4 10^3/uL (4.4-10.8)
[2021-05-04 07:05] LABS: BUN/Creatinine Ratio 9.3; Calcium 7.8 mg/dL (8.5-10.1); Potassium 3.6 mmol/L (3.5-5.1)
[2021-05-04 08:50] VITALS: BP 115/77
[2021-05-04 13:00] VITALS: BP 123/73
== END 2021-05-04 15:10 | disposition left against medical advice (07) | DRG 344 ==
LOC: ER 15:19 → TELE 05-03 02:36 → OVERFLOW 05-03 03:38 → TELE-CENTR 05-03 18:36
PROVIDERS: ADMIT Hospitalist; ATTEND Hospitalist
DX: E11.69 Type 2 diabetes mellitus with other specified complication (principal); M86.8X7 Other osteomyelitis, ankle and foot; E11.52 Type 2 diabetes mellitus with diabetic peripheral angiopathy with gangrene; N17.9 Acute kidney failure, unspecified; I96 Gangrene, not elsewhere classified; Z20.822 Contact with and (suspected) exposure to COVID-19; Z88.0 Allergy status to penicillin; Z88.8 Allergy status to other drugs, medicaments and biological substances; Z90.49 Acquired absence of other specified parts of digestive tract; Z83.3 Family history of diabetes mellitus; Z82.61 Family history of arthritis; Z82.49 Family history of ischemic heart disease and other diseases of the circulatory system; Z84.1 Family history of disorders of kidney and ureter; Z53.29 Procedure and treatment not carried out because of patient's decision for other reasons
CPT/HCPCS: 36415; 73700; 80048; 80053; 82962; 84702; 85025; 85610; 85652; 85730; 87077; 87081; 87186; 87205; 87426; 96361; 96365; 96375; 96376; G0378; J1815; J1956; J2405